=== PATIENT | male | born 1970 | race Caucasian/White ===

== ENCOUNTER 2019-05-14 19:00 | Inpatient (IN) ==
[2019-05-14 19:47] LABS: BASO# 0.01 X1000 (0.0-0.2); BASO% 0.1 % (0.0-0.8); EOS# 0.01 X1000 (0.0-0.7); EOS% 0.1 % (0.0-10.0); HEMATOCRIT 36.2 % (42.0-52.0); HEMOGLOBIN 12.1 g/dL (14.0-18.0); IMM GRAN# 0.01 X1000 (0.0-0.04); IMM GRAN% 0.1 % (0.0-0.5); LYMPH# 1.06 X1000 (1.2-3.4); LYMPH% 12.8 % (20.5-51.1); MCH 34.3 PG (27-31); MCHC 33.4 g/dL (33-37); MCV 102.5 FL (81-99); MONO# 0.93 X1000 (0.11-0.59); MONO% 11.2 % (1.7-9.3); MPV 10.2 FL (7.4-10.4); NEUT# 6.25 X1000 (1.4-6.5); NEUT% 75.7 % (42.2-75.2); PLT 173 X1000 (130-400); RBC 3.53 XMIL (4.7-6.1); RDW 13.2 % (11.5-14.5); WBC 8.27 X1000 (4.8-10.8)
[2019-05-14 20:13] LABS: AGAP 17; ALBUMIN 4.7 g/dL (3.5-5.0); ALKALINE PHOSPHATASE 86 U/L (32-122); BUN 28 mg/dL (8-22); CALCIUM 9.5 mg/dL (8.8-10.2); CHLORIDE 97 mmol/L (98-107); COSMO 282; CREATININE 1.2 mg/dL (0.7-1.2); ESTIMATED GFR > 60; GLUCOSE 108 mg/dL (70-104); GOT 73 U/L (10-34); GPT 57 U/L (10-44); POTASSIUM 3.1 mmol/L (3.5-5.1); SODIUM 138 mmol/L (136-145); TCO2 24 mmol/L (25-35); TOTAL PROTEIN 8.3 g/dL (6.3-8.3)
[2019-05-14] MEDS ORDERED: KLOR-CON PO ONE (20:35)
[2019-05-14 22:03] LABS: URINE SOURCE CLEAN CATCH
[2019-05-14 22:06] LABS: BILIRUBIN URINE NEGATIVE (NEGATIVE); BLOOD URINE NEGATIVE (NEGATIVE); COLOR YELLOW; GLUCOSE URINE NEGATIVE (NEGATIVE); KETONE URINE TRACE mg/dL (NEGATIVE); LEUKOCYTES URINE NEGATIVE (NEGATIVE); NITRITE URINE NEGATIVE (NEGATIVE); PROTEIN URINE 70 mg/dL (NEGATIVE); TURBIDITY URINE CLEAR (CLEAR); UROBILINOGEN URINE 2 mg/dL (NORMAL)
[2019-05-14 22:12] LABS: UR EPITHELIAL CELLS <10 /HPF (<10); URINE BACTERIA NEGATIVE /HPF; URINE CASTS NONE SEEN; URINE CRYSTALS NONE SEEN; URINE RBC <10 /HPF (<10); URINE SMALL ROUND CELLS NONE SEEN; URINE WBC <10 /HPF (<10); URINE YEAST NONE SEEN
[2019-05-14 22:17] LABS: UR AMPHETAMINES QUAL NONE DETECTED (NONE DETECT); UR BARBITUATES QUAL NONE DETECTED (NONE DETECT); UR BENZODIAZEPIN QUAL NONE DETECTED (NONE DETECT); UR CANNABINOIDS QUAL NONE DETECTED (NONE DETECT); UR COCAINE QUAL NONE DETECTED (NONE DETECT); UR METHADONE QUAL NONE DETECTED (NONE DETECT); UR METHAMPHETAMINE QUAL PRESUMPTIVE POSITIVE (NONE DETECT); UR OPIATES QUAL NONE DETECTED (NONE DETECT); UR OXYCODONE QUAL NONE DETECTED (NONE DETECT); UR PCP QUAL NONE DETECTED (NONE DETECT); UR PROPOXYPHENE QUAL NONE DETECTED (NONE DETECT); UR TCA QUAL NONE DETECTED (NONE DETECT)
--- NOTE | 2019-05-14 23:19 | EKG Report ---
Test Performed on : 05/14/2019 7:39:09 PM Test Reason : ETOH WITHDRAWAL Blood Pressure : / mmHG Vent. Rate : 097 BPM Atrial Rate : 097 BPM P-R Int : 120 ms QRS Dur : 084 ms QT Int : 366 ms P-R-T Axes : 049 -11 058 degrees QTc Int : 464 ms Normal sinus rhythm. Minimal voltage criteria for LVH, may be normal variant Borderline ECG No previous ECGs available Unconfirmed Result
[2019-05-14] MEDS: LIBRIUM PO SCH (23:45)
[2019-05-14] MEDS ORDERED: M.V.I.-12 10 ML, FOLIC ACID 1 MG, MAGNESIUM SULFATE 1 GM, THIAMINE 100 MG in NS 1,000 ML IV ONE (23:58)
[2019-05-14] MEDS ORDERED: TYLENOL PO PRN (23:59)
[2019-05-14] MEDS ORDERED: ZOFRAN IV PRN (23:59)
[2019-05-15] MEDS: LIBRIUM PO SCH ×3 (05:40→17:07)
[2019-05-15] MEDS ORDERED: NICODERM PATCH TD PRN (11:12)
--- NOTE | 2019-05-15 15:10 | HISTORY AND PHYSICAL ---
PRIMARY CARE PROVIDER: Arsalan Plaza MD. CHIEF COMPLAINT: Dizziness, abdominal cramps, shakiness, alcohol withdrawal. HISTORY OF PRESENT ILLNESS: This is a 48-year-old gentleman with a history of alcohol use and abuse, who presents to the emergency room complaining of dizzy spells, abdominal cramps, and shakiness. He states that he has been drinking about a fifth of vodka a day for about a month and a half and that he quit drinking recently. The patient states he feels that he needs a psych evaluation as he feels that he is hallucinating, seeing stars, and he feels the floor moving under him. He does state that he has a history of hypertension as well, although he takes no medications for it and it has been quite some time since he has. He denied any syncope, any chest pain or palpitations, any shortness of breath. PAST MEDICAL HISTORY: Hypertension, untreated. PAST SURGICAL HISTORY: Denies. SOCIAL HISTORY: He drinks about a fifth of vodka a day up until the last 5 days. He smokes a pack and half a day. 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 REVIEW OF SYSTEMS: Discussed with patient with pertinent positives stated in the HPI. He denied any syncope, any chest pain or palpitations, any fevers or chills, recent weight loss or weight gain, any nausea, vomiting, diarrhea, constipation, black or bloody vomitus or stools, any hematuria, dysuria, frequency, urgency. PHYSICAL EXAMINATION: GENERAL: This is a 48-year-old gentleman who is sitting up at the bedside on the [facility] floor in no distress. VITAL SIGNS: Blood pressure is 114/61, heart rate of 75, respirations are 18, temperature is 97.8 degrees oral, with room air saturations 98 to 100. EYES: Pupils are equal, round, react to light. EOMs are intact. Sclerae are anicteric. HENT: Head is normocephalic, atraumatic. Mucous membranes are moist. NECK: Supple with trachea midline. CARDIOVASCULAR: Regular rate and rhythm. S1 and S2 are appreciated. No murmur. He has no lower extremity edema. Calves are nontender bilateral with peripheral pulses palpable x4 extremities. PULMONARY: Breath sounds are clear with no increased work of breathing noted. Chest rises and falls symmetric with respiration. Chest wall is nontender to palpation. GASTROINTESTINAL: Abdomen is soft, nontender, nondistended with bowel sounds in all 4 quadrants. GENITOURINARY: No CVA nor suprapubic tenderness. NEUROLOGIC: He is alert and oriented. SKIN: Warm and dry. LABS: WBC is 8.2 with hemoglobin 12.1, hematocrit 36.2, platelets of 173,000. Sodium 138, potassium 3.1, BUN 28, creatinine 1.2, with a glucose of 108. Total bilirubin is 1.2 with an AST of 73, ALT of 57. Urinalysis is essentially negative. Urine drug screen is presumptive positive for methamphetamines and blood alcohol is none detected. EKG: Reveals sinus rhythm at a rate of 97. ASSESSMENT: 1. Alcohol withdrawal. 2. Abdominal cramping secondary to above. 3. Hypertension, untreated. 4. Hypokalemia. 5. Elevated liver function tests. 6. History of methadone abuse. 7. Urine drug screen positive for methamphetamines. PLAN: The patient has been admitted to the medical floor. We will place him on telemetry. We will check a BMP and magnesium and check CBC, CMP, and magnesium in the morning. Continue neuro checks for 24 hours. We will continue Librium taper. The patient was given a banana bag in the emergency room. Potassium was treated. We will recheck labs and replete as appropriate. At this time the patient denies any hallucinations. He denies earlier sensation of feeling the floor moving or rolling. We will continue to monitor. Patient was evaluated and the plan was discussed with Dr. Herrera. Further treatments pending hospital course. Dictated by TENZIN Simms for Hill Herrera MD cc: TENZIN Simms MD
[2019-05-15 15:31] LABS: AGAP 10; BUN 18 mg/dL (8-22); CALCIUM 8.7 mg/dL (8.8-10.2); CHLORIDE 101 mmol/L (98-107); COSMO 283; CREATININE 0.6 mg/dL (0.7-1.2); ESTIMATED GFR > 60; GLUCOSE 125 mg/dL (70-104); MAGNESIUM 2.3 mg/dL (1.5-2.7); POTASSIUM 3.5 mmol/L (3.5-5.1); SODIUM 140 mmol/L (136-145); TCO2 28 mmol/L (25-35)
--- NOTE | 2019-05-15 20:31 | HISTORY AND PHYSICAL ---
ADDENDUM: Patient seen and examined by myself. Full note dictated and discussed with nurse practitioner. Patient presented to the hospital with nausea, vomiting, abdominal pain. He was noted to be in alcohol withdrawal. We are going to admit him to the hospital. He does have a positive drug screen for methamphetamines. WIll place him on a Librium taper and will monitor for withdrawal. Please see full note. cc: Hill Herrera MD
[2019-05-16] MEDS: LIBRIUM PO SCH ×2 (02:25→07:57)
[2019-05-16 07:01] LABS: BASO# 0.01 X1000 (0.0-0.2); BASO% 0.2 % (0.0-0.8); EOS# 0.07 X1000 (0.0-0.7); EOS% 1.3 % (0.0-10.0); HEMATOCRIT 36.1 % (42.0-52.0); HEMOGLOBIN 11.7 g/dL (14.0-18.0); IMM GRAN# 0.01 X1000 (0.0-0.04); IMM GRAN% 0.2 % (0.0-0.5); LYMPH# 1.07 X1000 (1.2-3.4); LYMPH% 19.4 % (20.5-51.1); MCH 34.1 PG (27-31); MCHC 32.4 g/dL (33-37); MCV 105.2 FL (81-99); MONO# 0.62 X1000 (0.11-0.59); MONO% 11.3 % (1.7-9.3); MPV 10.1 FL (7.4-10.4); NEUT# 3.73 X1000 (1.4-6.5); NEUT% 67.6 % (42.2-75.2); PLT 185 X1000 (130-400); RBC 3.43 XMIL (4.7-6.1); WBC 5.51 X1000 (4.8-10.8)
[2019-05-16 07:29] LABS: AGAP 13; ALKALINE PHOSPHATASE 77 U/L (32-122); BUN 13 mg/dL (8-22); CALCIUM 8.8 mg/dL (8.8-10.2); CHLORIDE 101 mmol/L (98-107); COSMO 282; CREATININE 0.5 mg/dL (0.7-1.2); ESTIMATED GFR > 60; GLUCOSE 117 mg/dL (70-104); GOT 44 U/L (10-34); GPT 47 U/L (10-44); MAGNESIUM 2.4 mg/dL (1.5-2.7); POTASSIUM 3.4 mmol/L (3.5-5.1); SODIUM 141 mmol/L (136-145); TCO2 27 mmol/L (25-35); TOTAL PROTEIN 7.2 g/dL (6.3-8.3)
[2019-05-16 07:47] VITALS: BP 115/66
[2019-05-16 09:56] LABS: LYMPHS 17 % (21-51); MONO 9 % (1-9); SEGS 74 % (42-75)
--- NOTE | 2019-05-20 18:02 | DISCHARGE SUMMARY ---
ADMISSION DATE: 05/15/2019 DISCHARGE DATE: 05/16/2019 DISCHARGE DIAGNOSES: 1. Acute alcohol withdrawal resolved. 2. Crampy abdominal pain improved. 3. Hypertension stable. 4. Anemia stable. 5. History of methadone use and abuse.. 6. Urine drug screen positive for methamphetamines. CONSULTATIONS: None. PROCEDURES: None. BRIEF HOSPITAL COURSE: The patient is a 48-year-old male who presented to the hospital with abdominal pain cramping shaking and jitteriness. He was treated with Librium to taper. Thankfully on discharge, he is awake, alert. He is in no distress. Therefore, he will be discharged home. TIME SPENT: Greater than 30 minutes was spent in total care. Discussed with patient he needs to follow up as outpatient in the treatment facility of his choice. Discussed with him options for treatment including [*]altrexone. Further inpatient care if he desires. cc: Hill Herrera MD
== END 2019-05-16 14:31 | disposition home or self-care (01) | DRG 897 ==
LOC: P.ED 19:00 → P.MEDSURG 05-15 01:13
PROVIDERS: ATTEND Family Medicine